=== PATIENT | female | born 1945 | race Caucasian/White ===

== ENCOUNTER 2021-02-27 13:11 | Emergency (ER) | payer MEDICARE, BC, SELFPAY ==
[2021-02-27] VITALS (9 sets, daily range): BP systolic 132–211; BP diastolic 79–121; PULSE 62–238; RESP 12–61; TEMP 37; O2SAT 83–99; BMI 18.7
--- NOTE | 2021-02-27 13:28 | ED.GENADULT ---
HPI - General Adult General Chief complaint: Abdominal Pain Stated complaint: Extreme constipation/not able to walk Time Seen by Provider: 02/27/21 13:23 Source: patient Mode of arrival: Ambulatory History of Present Illness HPI narrative: Patient is a 75-year-old female who is here for evaluation of which he initially stated was severe constipation. She states that yesterday afternoon she had a rather sudden onset of generalized abdominal discomfort. She states she has had this type of discomfort in the past. She states she normally will have diarrhea afterwards and then the discomfort improves. She states that her doctor in [place] told her that she had a blockage of her abdomen. She did have a colonoscopy 10 years ago but that was not for the discomfort that she presents with today. Some nausea but no vomiting. She states that after she developed the abdominal pain yesterday she took 2 Imodium because she normally develops diarrhea afterwards. She did have a bowel movement yesterday and that improved/resolved the abdominal pain. Woke up this morning feeling rather poorly and then at lunch today the abdominal pain returned. Related Data Previous Rx's Medication Instructions Recorded dicyclomine 20 mg tablet 20 mg PO TID PRN #21 tab 02/27/21 ondansetron 4 mg disintegrating 4 mg PO Q6H #10 tab 02/27/21 tablet Allergies Allergy/AdvReac Type Severity Reaction Status Date / Time Penicillins Allergy Verified 02/27/21 14:40 Review of Systems Constitutional Constitutional: Denies fever(s) Cardiovascular Cardiovascular: Denies chest pain and Denies dyspnea Respiratory Respiratory: Denies dyspnea Gastrointestinal Gastrointestinal: Reports as per HPI Genitourinary Genitourinary: Denies dysuria Musculoskeletal Musculoskeletal: Reports back pain Integumentary/Breasts Skin/Breast: Denies rash Neurologic Neurologic: Reports system reviewed and no additional complaints, except as documented Psychiatric Psychiatric: Reports system reviewed and no additional complaints, except as documented Hematologic/Lymphatic On Anticoagulants: No Allergic/Immunologic Allergic/Immunologic: Reports system reviewed and no additional complaints, except as documented Patient History Surgical History Hx of appendectomy Social History marital status: lives independently: Yes Smoking Status: Never smoker Exam Initial Vital Signs Initial Vital Signs: Vital Signs Temperature 98.6 F 02/27/21 13:29 Pulse Rate 62 07/18/21 13:29 Respiratory Rate 12 02/27/21 13:29 Blood Pressure 190/87 H 02/27/21 13:29 Pulse Oximetry 99 02/27/21 13:29 Const General: cooperative and comfortable HENMT Head: normal to inspection and normocephalic Eyes General: appearance normal, both eyes and all related structures Resp Auscultation: clear to auscultation bilaterally Percussion: percussion normal Cardio Rate: regular rate Rhythm: regular rhythm GI Inspection: normal to inspection Palpation: guarding and tender Skin General: no rashes or lesions noted Neuro General: patient alert, patient awake, patient oriented x3 and moves all extremities Extrem General: normal to inspection and capillary refill normal Psych Appearance: grossly normal and well kempt Course Orders Ordered: ED Orders 02/27/21 13:28 CT angio abdomen pelvis Stat 02/27/21 13:30 EKG-12 Lead Stat 02/27/21 13:47 Complete Blood Count AUTO DIFF Stat Comprehensive Metabolic Panel Stat Lactate (Lactic Acid) Stat Lipase Stat Troponin & CK Cardiac Panel Stat Discontinued Medications Dicyclomine HCl (Dicyclomine 10 Mg Capsule) 20 mg PO NOW ONE Stop: 02/27/21 16:05 Last Admin: 02/27/21 16:16 Dose: 20 mg Documented by: ROSA MARIA Hydromorphone HCl (Hydromorphone 1 Mg Inj) 1 mg IV NOW ONE Stop: 02/27/21 14:30 Last Admin: 02/27/21 14:33 Dose: 1 mg Documented by: ROSA MARIA Sodium Chloride (Normal Saline 0.9%) 1,000 mls @ 1,000 mls/hr IV BOLUS ONE Stop: 02/27/21 14:27 Last Infusion: 02/27/21 16:16 Dose: 0 mls/hr Documented by: ROSA MARIA Admin: 02/27/21 13:56 Dose: 1,000 mls/hr Documented by: GLORIA Morphine Sulfate (Morphine 4 Mg/Ml Inj) 4 mg IV NOW ONE Stop: 02/27/21 13:29 Last Admin: 02/27/21 13:56 Dose: 4 mg Documented by: GLORIA Vital Signs Vital signs: Vital Signs - 8 hr 02/27/21 13:29 02/27/21 14:26 02/27/21 14:27 Temperature 98.6 F Pulse Rate 62 91 H 89 Respiratory Rate 12 61 H 39 H Blood Pressure 190/87 H 211/121 H Pulse Oximetry 99 86 L 83 L 02/27/21 14:30 02/27/21 14:31 02/27/21 15:04 Temperature Pulse Rate 87 81 238 H Respiratory Rate 42 H 46 H Blood Pressure 183/84 H Pulse Oximetry 87 L 88 L 96 02/27/21 15:36 02/27/21 15:41 02/27/21 16:00 Temperature Pulse Rate 87 86 85 Respiratory Rate Blood Pressure 132/79 Pulse Oximetry 94 97 96 Medical Decision Making Lab Data Lab results reviewed: Yes I reviewed the patient's lab results. Result diagrams: 02/27/21 13:47 02/27/21 13:47 Labs: Lab Results 02/27/21 02/27/21 02/27/21 Range/Units 13:47 13:47 13:47 WBC 8.6 (4.5-11.0) X10^3/uL RBC 4.05 (4.0-5.2) X10^6/uL Hgb 12.6 (12.0-16.0) g/dL Hct 38.2 (36-46) % MCV 94.3 (80-100) fL MCH 31.2 (26-34) PG MCHC 33.1 (30-36) % RDW 13.2 (11.6-14.8) % Plt Count 412 H (150-400) X10^3/uL Neut % (Auto) 64.8 (50-75) % Lymph % (Auto) 25.6 (25-40) % [place] % (Auto) 8.1 (3-14) % Eos % (Auto) 1.1 L (2-4) % Baso % (Auto) 0.4 (0-2) % Neut # (Auto) 5600 (0134-9467) /uL Lymph # (Auto) 2200 (4891-4364) /uL [place] # (Auto) 700 (0-900) /uL Eos # (Auto) 100 (0-450) /uL Baso # (Auto) 0 (0-100) /uL Sodium 135 L (137-145) mmol/L Potassium 4.2 (3.4-5.1) mmol/L Chloride 104 (98-107) mmol/L Carbon Dioxide 20 L (22-32) mmol/L BUN 10 (7-17) mg/dL Creatinine 0.45 L (0.52-1.04) mg/dL Estimated GFR > 60.0 (>60) mL/min BUN/Creatinine Ratio 22.2 H (6-22) Glucose 142 H (80-110) mg/dL Lactate (0.7-2.1) mmol/L Calcium 9.9 (8.4-10.2) mg/dL Total Bilirubin 0.8 (0.2-1.3) mg/dL AST 56 H (14-36) IU/L ALT 37 H (<35) IU/L Alkaline Phosphatase 87 (38-126) U/L Total Creatine Kinase 83 (30-135) U/L CK-MB (CK-2) TNP CK-MB (CK-2) Rel Index TNP Troponin I < 0.012 (0.01-0.034) ng/mL Total Protein 7.3 (6.3-8.2) g/dL Albumin 4.4 (3.5-5.0) g/dL Globulin 2.9 (1.7-4.1) g/dL Albumin/Globulin Ratio 1.5 (1.0-2.8) Lipase 50 (23-300) U/L // Range/Units 13:47 WBC (4.5-11.0) X10^3/uL RBC (4.0-5.2) X10^6/uL Hgb (12.0-16.0) g/dL Hct (36-46) % MCV (80-100) fL MCH (26-34) PG MCHC (30-36) % RDW (11.6-14.8) % Plt Count (150-400) X10^3/uL Neut % (Auto) (50-75) % Lymph % (Auto) (25-40) % [place] % (Auto) (3-14) % Eos % (Auto) (2-4) % Baso % (Auto) (0-2) % Neut # (Auto) (4740-3460) /uL Lymph # (Auto) (1710-6964) /uL [place] # (Auto) (0-900) /uL Eos # (Auto) (0-450) /uL Baso # (Auto) (0-100) /uL Sodium (137-145) mmol/L Potassium (3.4-5.1) mmol/L Chloride (98-107) mmol/L Carbon Dioxide (22-32) mmol/L BUN (7-17) mg/dL Creatinine (0.52-1.04) mg/dL Estimated GFR (>60) mL/min BUN/Creatinine Ratio (6-22) Glucose (80-110) mg/dL Lactate 1.7 (0.7-2.1) mmol/L Calcium (8.4-10.2) mg/dL Total Bilirubin (0.2-1.3) mg/dL AST (14-36) IU/L ALT (<35) IU/L Alkaline Phosphatase (38-126) U/L Total Creatine Kinase (30-135) U/L CK-MB (CK-2) CK-MB (CK-2) Rel Index Troponin I (0.01-0.034) ng/mL Total Protein (6.3-8.2) g/dL Albumin (3.5-5.0) g/dL Globulin (1.7-4.1) g/dL Albumin/Globulin Ratio (1.0-2.8) Lipase (23-300) U/L Urine Dip Bedside Urine Glucose Negative Bedside Urine Bilirubin - Negative Bedside Urine Ketone - Negative Urine Specific [place] 1.010 Bedside Urine Occult Blood - Negative Bedside Urine pH 6.0 Bedside Urine Protein - Negative Bedside Urine Urobilinogen - Negative Bedside Urine Nitrite - Negative Bedside Urine Leukocytes - Negative Esterase Point of care testing: Urine Dip Bedside Urine Glucose Negative Bedside Urine Bilirubin - Negative Bedside Urine Ketone - Negative Urine Specific [place] 1.010 Bedside Urine Occult Blood - Negative Bedside Urine pH 6.0 Bedside Urine Protein - Negative Bedside Urine Urobilinogen - Negative Bedside Urine Nitrite - Negative Bedside Urine Leukocytes - Negative Esterase Imaging Data CT scan - abdomen/pelvis: Radiologist's Impression: [address] [id number] Scan ReportSigned Patient: Alondra Finley MMR#: [id number]: 7Acct:[id number]/Sex: 75 / FDate of Service: 02/27/21Loc: EDAccession Number: [id number] Procedure: CT angio abdomen pelvis Ordering Provider: Grzegorz Moise D.O. PROCEDURE: CT ANGIO ABDOMEN PELVIS INDICATIONS: Eval for ischemic bowel TECHNIQUE: After the administration of intravenous contrast, 2.5 mm sections acquired from the diaphragm to the iliac crests. 10 mm maximum intensity projection (MIP) coronal and sagittal reformats were then performed. For radiation dose reduction, the following was used: automated exposure control. COMPARISON: None. FINDINGS: Image quality: Excellent. Extravascular tissues: Lung bases are clear. Heart size is normal. There is hepatomegaly, no discrete hepatic lesion. Gallbladder is distended. No calcified gallstone is seen. No gallbladder wall thickening or pericholecystic fluid. There is mild intrahepatic biliary ductal dilatation and prominence of common bile duct measures up to 1.2 cm in diameter in mid to distal common bile duct. Pancreas enhances normally. Spleen is normal in size and enhancement. Prominence of pancreatic duct is seen measures up to 5 mm in diameter. No adrenal nodules. Kidneys are normal in size and enhancement, without hydronephrosis. Bilateral renal cysts are seen measures 1.5 cm in size in lower pole of right kidney and 1.4 cm in size in upper to midpole of left kidney. Non-opacified bowel loops show no evidence of bowel obstruction. There is a short segment of thickened small bowel loop seen in anterior lower abdomen near midline with wall edema series 4, image 98. No abscess collection. No free fluid or air. No retroperitoneal or mesenteric adenopathy. No ventral hernias. No suspicious bony abnormalities. No vertebral body compression fractures. Abdominal aorta: Mild atherosclerotic calcifications are noted in mid to distal infrarenal abdominal aorta. There is no aortic aneurysm or dissection. Mesenteric arteries: Celiac actively, superior mesenteric artery, and inferior mesenteric artery are patent without hemodynamically significant stenosis. More distal branches of mesenteric arteries are grossly patent. Renal arteries: Bilateral renal arteries are patent. IMPRESSION: 1. No abdominal aortic aneurysm or dissection. [id number] atherosclerotic calcifications in abdominal aorta. 2. Mesenteric arteries are patent without CT hemodynamically significant stenosis. Bilateral renal arteries are patent. 3. Short segment of thickened small bowel loops in anterior mid to lower abdomen suggestive of focal area of infectious or inflammatory enteritis. No other area of abnormal bowel wall thickening. No free fluid or free air. 4. Hepatomegaly and hepatic steatosis, no discrete hepatic lesion. 5. Likely chronic biliary ductal dilatation as above. No evidence of choledocholithiasis. Distended gallbladder without CT evidence of acute cholecystitis. Dictated by: Robert Tolliver M.D. on 02/27/2021 at 15:43 Approved by: Robert Tolliver M.D. on 02/27/2021 at 15:50 ECG Data Attestation: I personally reviewed and interpreted this ECG as follows: Interpretation: Sinus rhythm Ventricular rate is 70 Normal axis Normal QRS Normal QTC No ST T wave changes MDM Narrative Medical decision making narrative: Patient has a complete resolution of symptoms of pain medication. Labs are unremarkable. CT scan does not show any signs of a acute surgical pathology. She does have findings consistent with enteritis and this does fit with which he states her stated history of been. No indication for antibiotics. I did recommend to her that she avoid the Imodium. Informed her that she could develop diarrhea over the next 24-48 hours. Will send home with nausea medication and Bentyl to see if this can help her symptoms as well. We did discuss bland diet. She was given return precautions and follow-up instructions. She expressed understanding and agreement. Discharge Plan Departure Patient Disposition: Home Clinical Impression: Abdominal pain, Enteritis Instructions: DI for Abdominal Pain-Adult, DI for Enteritis Activity Restrictions/Additional Instructions: The CT scan today did not show any signs of a surgical issue. There was no signs of any constipation nor bowel obstruction. We will send a prescription for a medicine called Bentyl and some nausea medication to the pharmacy of your choice. Take them as directed. Return to the emergency department for any new or worsening symptoms Prescriptions: New ondansetron 4 mg tablet,disintegrating 4 mg PO Q6H Qty: 10 RF: 0 dicyclomine 20 mg tablet 20 mg PO TID PRN (Reason: abdominal pain) Qty: 21 RF: 0
[2021-02-27] MEDS: SODIUM CHLORIDE 0.9% 1,000 ML 1000 ML IV (13:56)
[2021-02-27] MEDS: MORPHINE 4 MG/ML INJ IV (13:56)
[2021-02-27 13:57] LABS: Add Manual Diff / Slide Review NO; Basophils Absolute Auto 0 /uL (0-100); Basophils Percent Auto 0.4 % (0-2); Eosinophils Absolute Auto 100 /uL (0-450); Eosinophils Percent Auto 1.1 % (2-4); Hematocrit 38.2 % (36-46); Hemoglobin 12.6 g/dL (12.0-16.0); Lymphocytes Absolute Auto 2200 /uL (1100-4500); Lymphocytes Percent Auto 25.6 % (25-40); Mean Corpuscular HGB Conc 33.1 % (30-36); Mean Corpuscular Hemoglobin 31.2 PG (26-34); Mean Corpuscular Volume 94.3 fL (80-100); Monocytes Absolute Auto 700 /uL (0-900); Monocytes Percent Auto 8.1 % (3-14); Neutrophils Absolute Auto 5600 /uL (1500-7000); Neutrophils Percent Auto 64.8 % (50-75); Platelet Count 412 X10^3/uL (150-400); Red Blood Cell Count 4.05 X10^6/uL (4.0-5.2); Red Cell Distribution Width 13.2 % (11.6-14.8); White Blood Cell Count 8.6 X10^3/uL (4.5-11.0)
[2021-02-27 14:09] LABS: Alanine Aminotransferase 37 IU/L (<35); Albumin 4.4 g/dL (3.5-5.0); Albumin Globulin Ratio 1.5 (1.0-2.8); Alkaline Phosphatase 87 U/L (38-126); Aspartate Aminotransferase 56 IU/L (14-36); BUN Creatinine Ratio 22.2 (6-22); Bilirubin Total 0.8 mg/dL (0.2-1.3); Blood Urea Nitrogen 10 mg/dL (7-17); Calcium 9.9 mg/dL (8.4-10.2); Carbon Dioxide 20 mmol/L (22-32); Chloride 104 mmol/L (98-107); Creatine Kinase 83 U/L (30-135); Estimated Glomerular Filt Rate > 60.0 mL/min (>60); Globulin 2.9 g/dL (1.7-4.1); Glucose 142 mg/dL (80-110); HEMOLYSIS 47 (0-50); Lipase 50 U/L (23-300); Potassium 4.2 mmol/L (3.4-5.1); Sodium 135 mmol/L (137-145); Total Protein 7.3 g/dL (6.3-8.2)
[2021-02-27 14:10] LABS: Lactate (Lactic Acid) 1.7 mmol/L (0.7-2.1)
[2021-02-27 14:21] LABS: Troponin I < 0.012 ng/mL (0.01-0.034)
[2021-02-27] MEDS: HYDROMORPHONE 1 MG INJ IV (14:33)
[2021-02-27] MEDS: DICYCLOMINE 10 MG CAPSULE 20 MG PO (16:16)
== END 2021-02-27 16:25 | disposition home or self-care (01) ==
PROVIDERS: Emergency Provider Emergency Medicine
DX: R10.84 Generalized abdominal pain (principal); K52.9 Noninfective gastroenteritis and colitis, unspecified; M54.9 Dorsalgia, unspecified
CPT/HCPCS: 36415; 74174; 80053; 81003; 82550; 83605; 83690; 84484; 85025; 93005; 93010; 96361; 96374; 96375; 99284; J1170; J2270; Q9967